=== PATIENT | female | born 2005 | race Caucasian/White ===

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

== ENCOUNTER 2024-04-10 13:44 | Outpatient (CLI) | payer OTHER, SELFPAY ==
--- NOTE | ~2024-04-10 | US_ITS ---
EXAMINATION: US pelvic complete w TV DATE: 04/10/2024 14:48 INDICATION: dysmenorrhea TECHNIQUE: Multiple transabdominal and endovaginal sonographic images of the pelvis were obtained. COMPARISON: None. FINDINGS: The uterus measures 6.7 x 3.8 x 5.2 cm. The endometrial complex measures 9 mm in thickness. The righ t ovary measures 3.3 x 2.0 x 2.7 cm. The left ovary measures 2.9 x 1.5 x 2.2 cm. There are few small anechoic follicles in both ovaries. There is normal vascular flow in the ovaries. There is small amou nt of anechoic likely physiologic free fluid in the pelvis. IMPRESSION: 1. Normal pelvic ultrasound with small amount of likely physiologic free fluid in the cul-de-sac. Reviewed, dictated and finalized at location A.
== END 2024-04-10 13:45 | disposition home or self-care (01) ==
LOC: ANHIMG 13:47
PROVIDERS: PCP Family Medicine; Visit Provider Family Medicine
DX: N94.6 Dysmenorrhea, unspecified (principal)
CPT/HCPCS: 76830; 76856

== ENCOUNTER 2025-05-19 10:14 | Emergency (ER) | payer OTHER, SELFPAY ==
--- NOTE | 2025-05-19 10:16 | ED.EAR ---
HPI - Ear Problem General Chief complaint: Ear Stated complaint: Right Ear Irritation Time Seen by Provider: 05/19/25 10:16 Source: patient Mode of arrival: ambulatory Limitations: no limitations History of Present Illness HPI Narrative: Leanna is a 20-year-old patient presenting to the clinic today with complaints right ear pain x 5-6 days. Also developing a headache from symptoms Has been taking ibuprofen and tried NyQuil for symptoms. States there was some greenish white discharge coming from the right ear. History of ear tubes as a child. No fevers, chills, body aches. Denies any URI symptoms. Related Data Home Medications ?Medication ?Instructions ?Recorded ?Confirmed ?Last Taken ?Type dextroamphetamine-amphetamine ER PO 05/19/25 Unknown History 10 mg 24hr capsule,extend release Allergies Allergy/AdvReac Type Severity Reaction Status Date / Time No Known Allergies Allergy Verified 05/19/25 10:41 Review of Systems Review of Systems: Pertinent positives per HPI. Patient denies any fever, chills, rash, headache, visual changes, dizziness, cough, shortness of breath, chest pain, palpitations, nausea, vomiting, diarrhea, constipation, abdominal pain, or any urinary issues. PMFSH Past Medical History Medical History (Updated 05/19/25 @ 10:28 by Corey Beverly APRN) Hx of migraines Bulimic Surgical History Surgical History History of ear surgery History of dental surgery Family History Family History Father Hypertension Mother Asthma Sibling Bipolar disorder Social History Social History Smoking status: Never smoker Tobacco type: cigarettes Second hand tobacco smoke exposure: No Alcohol intake: never Substance use: never Living arrangements: with family Additional living arrangements comments: parents and sibling Occupation/Education: student Gender identity (if verbalized by the patient): Female Comments At the time of my signature, I reviewed and agree with the nursing past medical, surgical, social, and family history. There is no relevant family history pertinent to the patient complaint. Exam Narrative: General: Well-developed, well nourished, in no apparent distress Head: Normocephalic, atraumatic Eyes: Pupils equally round and reactive to light bilaterally, EOM intact, sclera and conjunctive clear, no discharge, lids normal Ears: TMs intact and clear, left ear canal clear, right ear canal swelling, redness, with white discharge, tenderness to palpation over the tragus and pulling of the pinna, grossly hearing normal. Nose: Nares patent, no discharge, no inflammation, no sinus tenderness. Mouth: Oral pharynx without lesions or masses, good dentition, MMM. Neck: Supple, trachea midline, no enlargement of anterior or posterior cervical nodes, no thyroid masses or goiter palpable. Cardio: Regular rate and rhythm, s1 and s2 normal, no murmur appreciated. Resp: Clear to auscultation bilaterally, no rhonchi, rales, wheezing or rubs Course Course Emergency Course: Portions of this record may have been created with voice recognition software. Level of Care: Express Care Visit Vital Signs Vital signs: Vital Signs Temperature 37.1 C 05/19/25 10:21 Pulse Rate 62 05/19/25 10:21 Respiratory Rate 18 05/19/25 10:21 Blood Pressure 127/71 05/19/25 10:21 Pulse Oximetry 99 05/19/25 10:21 Oxygen Delivery Room Air 05/19/25 10:21 Temperature 37.1 C 05/19/25 10:21 Pulse Rate 62 05/19/25 10:21 Respiratory Rate 18 05/19/25 10:21 Blood Pressure 127/71 05/19/25 10:21 Pulse Oximetry 99 05/19/25 10:21 Oxygen Delivery Room Air 05/19/25 10:21 Vital signs reviewed Medical Decision Making MDM Narrative Medical decision making narrative: At the time of visit patient is resting comfortably on the exam table. complaints right ear pain x 5-6 days. Has been taking ibuprofen and tried NyQuil for symptoms. States there was some greenish white discharge coming from the right ear. History of ear tubes as a child. No fevers, chills, body aches. Denies any URI symptoms. Patient has some white discharge coming from the right ear with tenderness to palpation over the tragus and pulling of the pinna. Plan: I suspect patient has right otitis externa. Prescription for ofloxacin ear drops was sent to the pharmacy. Supportive measures were discussed with the patient and they voiced understanding discharge instructions and agrees to treatment plan. Return precautions reviewed Differential Diagnosis Differential Diagnosis: Otitis media, otitis externa, eustachian tube dysfunction, cerumen impaction, upper respiratory infection, serous otitis Vital Signs Vital Signs: Vital Signs Temperature 37.1 C 05/19/25 10:21 Pulse Rate 62 05/19/25 10:21 Respiratory Rate 18 05/19/25 10:21 Blood Pressure 127/71 05/19/25 10:21 Pulse Oximetry 99 05/19/25 10:21 Oxygen Delivery Room Air 05/19/25 10:21 Temperature 37.1 C 05/19/25 10:21 Pulse Rate 62 05/19/25 10:21 Respiratory Rate 18 05/19/25 10:21 Blood Pressure 127/71 05/19/25 10:21 Pulse Oximetry 99 05/19/25 10:21 Oxygen Delivery Room Air 05/19/25 10:21 Discharge Plan Discharge Clinical Impression: Otitis externa Qualifiers: Otitis externa type: unspecified type Chronicity: acute Laterality: right Qualified Code(s): H60.501 - Unspecified acute noninfective otitis externa, right ear Patient Disposition: Home Condition: Stable Instructions: Antibiotic Form, Swimmer's Ear (ED) Additional Instructions: Take any prescribed medications only as directed-ofloxacin Tylenol/motrin as needed for pain May use heating pad to alleviate pain. If you get recurrent ear infections it may be warranted to follow up with ENT. Follow up with your PCP in 3-5 days if symptoms persist. Patient Language: Indonesian Prescriptions: New ofloxacin 0.3 % drops 5 drp otic (ear) BID 7 Days Qty: 5 0RF No Action dextroamphetamine-amphetamine 10 mg capsule,extended release 24hr PO Follow-up/Referrals: Sid Smith MD [Primary Care Provider] - Time of Disposition: 10:28 Quality NIHSS Nursing Documentation ED NIHSS nursing documentation: reviewed/agree
[2025-05-19 10:21] VITALS: BP 127/71; PULSE 62; RESP 18; TEMP 37.1; O2SAT 99
== END 2025-05-19 10:31 | disposition home or self-care (01) ==
PROVIDERS: Emergency Provider Nurse Practitioner Family; PCP Emergency Medicine
DX: H60.501 Unspecified acute noninfective otitis externa, right ear (principal)
CPT/HCPCS: 99213; G0463

== ENCOUNTER 2025-06-17 08:54 | Emergency (ER) | payer OTHER, SELFPAY ==
[2025-06-17 08:57] VITALS: BP 112/79; PULSE 88; RESP 16; TEMP 36.9; O2SAT 98
--- NOTE | 2025-06-17 10:00 | ED_ITS ---
HPI - Dizziness General Chief Complaint: Dizziness Stated Complaint: Dizzy Time Seen by Provider: 06/17/25 08:56 Source: patient Mode of arrival: ambulatory Limitations: no limitations History of Present Illness HPI Narrative: Patient is a 20-year-old female, transitioning to male, that presents for 3 days of persistent dizziness. Reports the last day has been the most consistent with dizzy episode. States previously it would come and go but now has been constant. Patient took meclizine 2 days ago with no relief. Reports the room is not spinning but feels lightheaded. Movement from laying to sitting standing makes it worse along with transitioning from lying on right side to left side. Denies any nausea, vomiting, diarrhea, numbness, tingling or weakness to extremities. Denies any loss of vision but states at times there are stars. Does also report migraine 2 days ago that resolved. Has history of ear infections and ear surgery. Denies any congestion, fever, chills, ear pain, sore throat, cough. Related Data Home Medications ?Medication ?Instructions ?Recorded ?Confirmed ?Last Taken ?Type testosterone cypionate 200 mg/mL mg 06/17/25 Unknown History intramuscular oil Allergies Allergy/AdvReac Type Severity Reaction Status Date / Time No Known Allergies Allergy Verified 06/17/25 09:44 Review of Systems Review of Systems: All systems reviewed & are unremarkable except as noted in HPI and below Constitutional: Constitutional: Denies body ache(s), Denies chills, Denies fatigue, Denies fever(s), Denies headache(s), Denies malaise and Denies weakness Eyes: Eyes: Denies blurry vision, Denies irritation and Denies loss of vision ENT: Denies otalgia, Denies headache(s), Denies nasal discharge, Denies sinus pain and Denies sore throat Cardiovascular: Cardiovascular: Denies chest pain, Denies irregular heart r hythm and Denies dyspnea Respiratory: Respiratory: Denies dyspnea Gastrointestinal: Gastrointestinal: Denies abdominal pain, Denies melena, Denies hematochezia, Denies diarrhea, Denies nausea and Denies vomiting Musculoskeletal: Musculoskeletal: Denies back pain, Denies myalgias and Denies arthralgias Integumentary/Breasts: Skin/Breast: Denies pruritus and Denies rash Neurologic: Reports dizziness, Denies headache(s), Denies loss of vision and Denies weakness Psychiatric: Psychiatric: Reports no additional psychiatric complaints Endocrine: Endocrine: Denies fatigue PMFSH Past Medical History Medical History Hx of migraines Bulimic Surgical History Surgical History History of ear surgery History of dental surgery Family History Family History Father Hypertension Mother Asthma Sibling Bipolar disorder Social History Social History Smoking status: Never smoker Tobacco type: cigarettes Second hand tobacco smoke exposure: No Alcohol intake: never Substance use: never Living arrangements: with family Additional living arrangements comments: parents and sibling Occupation/Education: student Gender identity (if verbalized by the patient): Female Comments At time of signature, agree with nursing past medical, surgical, social and family history. There is no relevant family history pertinent to the presenting complaint. Exam Const: General: cooperative, healthy appearing, comfortable, no acute distress and well nourished Nutritional Appearance: well nourished Orientation/consciousness: patient oriented x3 Limitations: no limitations HENMT: Head: normal to inspection, normocephalic and atraumatic Ears: hearing grossly normal bilaterally, external ears normal, TM's normal bilaterally and Abnormal EAC present excessive cerumen bilateral Face/Nose/Sinus: Normal external nose present, normal facial exam and face symmetric Face and sinus: normal facial exam and face symmetric Mouth: Yes lip normal Eyes: General: appearance normal, both eyes and all related structures Alignment and Position: alignment normal and position normal Periorbital: periorbital findings normal Eyelids: eyelids normal Pupils: Equal, round and reactive pupils present EOM: EOMs intact bilaterally Neck: Neck: normal visual inspection, full ROM and supple Chest: Chest palpation & inspection: normal inspection of the chest Resp: Effort & Inspection: normal respiratory effort and able to speak in complete sentences Auscultation: clear to auscultation bilaterally Cardio: Rate: regular rate Rhythm: regular rhythm Heart sounds: S1 normal heart sound present and S2 normal heart sound present GI: Inspection: normal to inspection Skin: General skin exam: normal color and no rashes or lesions noted Neuro: General: patient oriented x3 and moves all extremities Cranial nerves: Yes Equal, round and reactive pupils present Speech: normal speech Gait exam (Neuro): Normal gait present Motor exam (neuro): 5/5 motor strength present throughout, Normal motor muscle tone present throughout and Motor abnormalities not present Sensory Exam: normal sensation Extrem: General: normal to inspection, full ROM and no edema Psych: Appearance: grossly normal and well kempt Mental Status: mental status grossly normal Speech and movement: Normal speech and movement present Affect: normal affect Attitude: cooperative Thought process: Normal thought process present Course Course Emergency Course: Patient being transfered to emergency department for further workup and evaluation. Patient may require labs and imaging to further assess persistent dizziness Portions of this record may have been created with voice recognition software Level of Care: Express Care Visit Vital Signs Vital signs: Vital Signs Temperature 36.9 C 06/17/25 08:57 Pulse Rate 88 06/17/25 08:57 Respiratory Rate 16 06/17/25 08:57 Blood Pressure 112/79 06/17/25 08:57 Pulse Oximetry 98 06/17/25 08:57 Oxygen Delivery Room Air 06/17/25 08:57 Temperature 36.9 C 06/17/25 08:57 Pulse Rate 88 06/17/25 08:57 Respiratory Rate 16 06/17/25 08:57 Blood Pressure 112/79 06/17/25 08:57 Pulse Oximetry 98 06/17/25 08:57 Oxygen Delivery Room Air 06/17/25 08:57 Reviewed Transfer Transfered to: [facility] Transportation: Other (Private auto) Transfer rationale: Patient being transferred to emergency department for further workup and evaluation. Patient may require labs and imaging to further assess persistent dizziness Accepting physician: Aba JACKSON MDM - Dizziness MDM Narrative Medical decision making narrative: Patient being transfered to emergency department for further workup and evaluation. Patient may require labs and imaging to further assess persistent dizziness Differential Diagnosis Differential diagnosis: Likely adverse reaction to drug, benign paroxysmal positional vertigo, cerebrovascular accident and transient cerebral ischemia Medical Records Attestation: I reviewed the patient's medical records. Discharge Plan Discharge Clinical Impression: Dizziness Patient Disposition: Acute Care Hospital Condition: Stable Patient Language: Taiwanese Prescriptions: No Action testosterone cypionate 200 mg/mL oil Follow-up/Referrals: Sid Smith MD [Primary Care Provider, [facility]] Time of Disposition: 10:00
== END 2025-06-17 10:00 | disposition short-term general hospital (02) ==
PROVIDERS: Emergency Provider Nurse Practitioner Family; PCP Emergency Medicine
DX: R42 Dizziness and giddiness (principal)
CPT/HCPCS: 99212; G0463

== ENCOUNTER 2025-06-17 10:17 | Emergency (ER) | payer OTHER, SELFPAY ==
--- OUTSIDE RECORDS SUMMARY | 2024-10-05 11:01 | XMS_ITS | Continuity of Care Document ---
Author Organization [facility] Address [address] [place], [place] Phone Care Team Providers Care Soccer Player Name Role Phone Sid Smith MD Unavailable Unavailable Allergies, Adverse Reactions, Alerts Substance Reaction Status Criticality cat dander Active No Information Medications Medication Instructions Dosage Effective Dates (start - stop) Status Comments Adderall XR 5 mg capsule,extended release take 1 capsule by oral route every day in the morning upon awakening 5 MG - Active Procedures Procedure Date OFFICE/OUTPATIENT VISIT, EST OFFICE/OUTPATIENT VISIT, EST OFFICE/OUTPATIENT VISIT, EST OFFICE/OUTPATIENT VISIT, EST PREV VISIT, NEW, AGE 18-39 OFFICE/OUTPATIENT VISIT, NEW Advance Directives Directive Yes / No Effective Date File Name No Information Encounters Encounter Description Practice Location Reason(s) For Visit Diagnoses Date Provider Providers Copied on Encounter OFFICE/OUTPA TIENT VISIT, [facility], [address], [id number], tel:[phone] [facility] testosterone (chief complaint)ADD (chief complaint) Attention deficitHormone replacement therapy Luis Lau. [address] [place], [place], [address] , [place]. tel:[phone] OFFICE/OUTPA TIENT VISIT, [facility], [address] [place], [place], [address], tel:[phone] [facility] acne1 (chief complaint)ADD (chief complaint) AcneAttention deficit 4 Luis Lau. [address], [place], [place], [address] , [place]. tel:[phone] OFFICE/OUTPA TIENT VISIT, [facility], [address], [place], [place], [address], [place] tel:[phone] [facility] ADD (chief complaint) Attention deficit 4 Luis Lau. [address], [place], [place], [address] , [place]. tel:[phone] OFFICE/OUTPA TIENT VISIT, [facility], [address], [place], [place], [address], [place] tel:[phone] [facility] ADD (chief complaint) Attention deficit 4 Luis Lau. [address], [place], [place], [address] , [place]. [phone] PREV VISIT, NEW, AGE 18-39 [facility], [address], [place], [place], [address], [place] tel:[phone] [facility] physical (chief complaint) Encounter for general adult medical exam w abnormal findingsAmenorrh eaHypopituitaris m 4 Luis Lau. [address], [place], [place], [address] , [place]. tel:[phone] Family History Family Member Type Diagnosis Age At Onset Brother Problem Alive and well Mother Problem Alive and well Father Problem Alive and well Payers Payer name Insurance type Covered constitution party ID Authoriza tion(s) No Information Social History Type Description Quantity Date Captured Comments Alcohol Use Details No Caffeine Use Details Unknown Tobacco Use Status Current non-smoker Smoking Status Never smoker Sex Female Vital Signs Date / Time: Height Weight BMI Pulse Rate Blood Pressure Temperature Respiratory Rate Body Surface Area Head Circumference BMI percentile Pulse Ox Inhaled Ox 4:08 PM 64.00 in 170.00 lbs 29.1 8 kg/m eter (2) 95 /min 120/80 mm[Hg] 98.1 F 16 /min Chief Complaint And Reason For Visit From encounter dated '10/05/2024 16:01'. testosterone (chief complaint). Description: Pt is born female and she is changing to male Pt needsdepo testosterone IM injection. her endo prescribed it 100 mg SC weekly. Pt feels anxious about doing the shot so she presented in office for the injections. ADD (chief complaint). Description: Pt has ADD pt sees psychiatrist for adderall and she is doing ok Plan Of Treatment Date Type Action Status Referral Ordered: Dermatology (related to Acne) ordered Referral Ordered: Referrals: Dermatology ordered Referral Ordered: Psychiatry (related to Attention deficit) ordered Referral Ordered: Referrals: Psychiatry. Evaluate and treat ordered History Of Present Illness Encounter Date Complaint History Of Prese nt Illness testosterone Pt is born femal e and she is changing to male Pt needs depo testosterone IM injection. her endo prescribed it 100 mg SC weekly. Pt feels anxious about doing the shot so she presented in office for the injections. ADD Pt has ADD pt se es psychiatrist for adderall and she is doing ok acne1 Pt has some cyst ic acne due to testosterone replacement chronically .Pt wants to see a in home nanny. Pt notices intermittent flare up with pain. Pt denies any drainage ADD Pt has ADD Pt do ing ok with adderall. Pt saw psychiatrist and she is on adderall 5 mg Xr now ADD Patient has ADD. Patient has inattentive type. Patient feels scatterbrained. Patient feel poor focus and difficulty completing tasks. Patient states that Adderall is helping with symptoms. Patient feels more focused. Pt feels more energy. Patient denies any headache, dry mouth, headache, chest pain. Patient denies any appetite loss. Pt wants to try XR form of adderall. ADD Pt has ADD pt smyth s been taking adderall 5 mg BID for 6 months which works very well but he notices crash feeling towards the end of the day. his psychiatrist closed the office and she wants referral to new psychiatrist. physical Pt needs annual physical pt is a born female and she is transitioning to female and she has been on 0.25 mg testosterone IM weekly. Pt started 3 months ago. Pt sees endo but she could not get in for 1 year. Pt still getting testosterone supply from endo but she is not able to follow up for at least one year Pt denies any side effects .Pt has not noticed any hair growth or voice change, etc Pt wants lab check Instructions Date Instruction Additional Infor mation No Information Assessments Type Assessment Date assessment Attention deficit assessment Hormone replacement therapy Mental Status Date Cognitive Assessment Orientation - [place] ed to time, place, person, situation.
[2025-06-17] VITALS (11 sets, daily range): BP systolic 85–138; BP diastolic 57–91; PULSE 55–96; RESP 13–20; TEMP 36.6; O2SAT 97–100
--- NOTE | 2025-06-17 10:46 | ED.DIZZY ---
HPI - Dizziness General Chief Complaint: Dizziness Stated Complaint: dizziness Time Seen by Provider: 06/17/25 10:29 History of Present Illness HPI Narrative: 40-year-old female transitioning to male presents to the ER complaining of dizziness for 3 days. States the dizziness is worse with positional movements. Denies injury or trauma. Patient was seen at urgent care earlier today and instructed to come to the ER for further evaluation. Patient states that she has been taking meclizine without improvement recent days. Related Data Home Medications ?Medication ?Instructions ?Recorded ?Confirmed ?Last Taken ?Type testosterone cypionate 200 mg/mL mg 06/17/25 Unknown History intramuscular oil Allergies Allergy/AdvReac Type Severity Reaction Status Date / Time No Known Allergies Allergy Verified 06/17/25 11:50 Review of Systems Review of Systems: All systems reviewed & are unremarkable except as noted in HPI and below PMFSH Past Medical History Medical History Hx of migraines Bulimic Surgical History Surgical History History of ear surgery History of dental surgery Family History Family History Father Hypertension Mother Asthma Sibling Bipolar disorder Social History Social History Smoking status: Never smoker Tobacco type: cigarettes Second hand tobacco smoke exposure: No Alcohol intake: never Substance use: never Living arrangements: with family Additional living arrangements comments: parents and sibling Occupation/Education: student Gender identity (if verbalized by the patient): Female Exam Narrative: In summary: 20-year-old female presents to ER complaining of positional dizziness. Patient was found to have a bilateral cerumen impaction. After wax removal, patient reported mild improvement in the dizziness. Patient was then given 1 L of fluid and a trial dose of 5 mg of Valium. Patient reports significant improvement in her dizziness. Will plan to discharge patient home in stable condition. Const: General: healthy appearing, no acute distress and alert Nutritional Appearance: well nourished Orientation/consciousness: patient oriented x3 Limitations: no limitations HENMT: Head: normal to inspection Other: bilateral cerumen impaction Eyes: Conjunctivae: conjunctivae normal Pupils: Equal, round and reactive pupils present EOM: EOMs intact bilaterally Neck: Neck: normal visual inspection Chest: Chest palpation & inspection: normal inspection of the chest Resp: Effort & Inspection: normal respiratory effort Auscultation: clear to auscultation bilaterally Cardio: Rate: regular rate Rhythm: regular rhythm Skin: General skin exam: normal color Rashes: no rashes Wounds: no wounds Neuro: General: patient oriented x3, moves all extremities, no meningeal signs, no focal motor deficits and CN's II-XI intact bilaterally Cranial nerves: Yes Nystagmus not present Speech: normal speech Gait exam (Neuro): Normal gait present Extrem: General: normal to inspection Psych: Mental Status: mental status grossly normal Affect: normal affect Attitude: cooperative Course Vital Signs Vital signs: Vital Signs Temperature 36.6 C 06/17/25 10:25 Pulse Rate 80 06/17/25 10:25 Respiratory Rate 20 06/17/25 10:25 Blood Pressure 136/73 06/17/25 10:25 Pulse Oximetry 99 06/17/25 10:25 Oxygen Delivery Room Air 06/17/25 10:25 Temperature 36.6 C 06/17/25 10:25 Pulse Rate 66 06/17/25 12:31 Respiratory Rate 14 06/17/25 12:31 Blood Pressure 90/68 L 06/17/25 12:31 Pulse Oximetry 100 06/17/25 12:31 Oxygen Delivery Room Air 06/17/25 10:25 MDM - Dizziness Lab Data 06/17/25 12:06 06/17/25 12:06 Labs: Lab Results 06/17/25 Range/Units 12:06 WBC 9.2 (4.5-10.0) K/mm3 RBC 5.58 H (4.2-5.4) M/mm3 Hgb 16.1 H (12.0-15.0) g/dL Hct 48.6 H (37.0-47.0) % MCV 87.1 (80-100) fl MCH 28.9 (26-34) pg MCHC 33.1 (32-36) g/dl RDW 13.6 (11.5-14.5) % Plt Count 259 (150-375) k/mm3 MPV 11.4 H (7.4-10.4) fl Immature Gran % (Auto) 0.3 (0-0.5) % Neut % (Auto) 70.1 (45.5-73.1) % Lymph % (Auto) 22.8 (18.3-44.2) % [place] % (Auto) 5.4 (2.6-8.5) % Eos % (Auto) 0.9 (0-4.4) % Baso % (Auto) 0.5 (0.2-1.2) % Lymph # (Auto) 2.09 (0.9-3.2) K/mm3 [place] # (Auto) 0.5 (0.1-0.6) K/mm3 Eos # (Auto) 0.1 (0-0.3) K/mm3 Baso # (Auto) 0.1 (0.0-0.1) K/mm3 Abs Immat Gran (auto) 0.03 (0.00-0.031) K/mm3 Absolute Neuts (auto) 6.4 (1.3-6.7) K/mm3 Absolute Nucleated RBC 0.000 (0.0-0.012) K/mm3 Nucleated RBC % 0.0 (0.0-0.2) % Sodium Pending Potassium Pending Chloride Pending Carbon Dioxide Pending Anion Gap Pending BUN Pending Creatinine Pending Estim Creat Clear Calc Pending Estimated GFR Pending Glucose Pending Calcium Pending Discharge Plan Discharge Clinical Impression: Benign paroxysmal positional vertigo, Bilateral impacted cerumen Patient Disposition: Home Condition: Stable Instructions: Antibiotic Form, Benign Paroxysmal Positional Vertigo (ED) Patient Language: Swedish Prescriptions: New meclizine 50 mg tablet 50 mg PO BID Qty: 20 0RF No Action testosterone cypionate 200 mg/mL oil Follow-up/Referrals: Sid Smith MD [Primary Care Provider, [facility]] Time of Disposition: 12:36
--- OUTSIDE RECORDS SUMMARY | 2025-06-17 10:48 | XMS_ITS | Clinical Summary ---
Author Organization [facility] Address [address] [place] [address] Care Team Providers Care Child Daycare Worker Name Role Phone Emma Jovel MD Primary Care Provider [phone] Source Comments [facility],non-owned Affiliates and Associated Physician Practices is amultiple site organization consisting of ambulatory clinics and hospital sitesin [place], [place] and [place]. This disclosure is being madepursuant to the Care Everywhere program and may not contain all information available regarding this patient. Last updated 18.[facility] [employer] Allergies Active Allergy Reactions Criticality Noted Date Comments Topiramate CORE SHAPER TOP Dysfunction 05/01/2021 Medications * Be aware that medications may not be up to date on this document. Alwaysverify current medications with the patient. levocetirizine (XYZAL ALLERGY 24HR) 5 MG tablet Take 5 mg by mouth once daily Active fluticasone propionate (FLONASE) 50 MCG/ACT nasal spray SHAKE LIQUID AND USE 1 SPRAY IN EACH NOSTRIL EVERY DAY 11/02/2020 Active nortriptyline (PAMELOR) 10 MG capsuleIndicati ons:migraine Take 3 caps at bedtime. Reasons: migraine 90 capsule 3 06/15/2021 Active rizatriptan (MAXALT) 5 MG tablet Take 1 (one) tablet by mouth once as needed for Migraine (MR in 2 hrs if needed) 12 tablet 3 06/15/2021 Active FEROSUL 325 (65 Fe) MG tablet TAKE 1 TABLET BY MOUTH TWICE DAILY, WITH MORNING AND EVENING MEAL 60 tablet 1 09/06/2021 Active Active Problems Problem Noted Date Diagnosed Date Dizziness 01/23/2021 Social History Tobacco Use Types Packs/Day Years Used Date Smoking Tobacco: Never Smokeless Tobacco: Never Alcohol Use Standard Drinks/Week Comments Never 0 (1 standard drink = 0.6 oz pur e alcohol) Comments No Sex and Gender Information Value Date Recorded Sex Assigned at Not on file Legal Sex Female 1:45 PM CDT Gender Identity Not on file Sexual Orientation Not on file Last Filed Vital Signs Vital Sign Reading Time Taken Comments Blood Pressure 100/62 06/15/2021 3:09 PM CDT Pulse 80 01/25/2021 3:37 PM CDT Temperature - - Respiratory Rate 16 01/25/2021 3:36 PM CDT Oxygen Saturation 97% 01/25/2021 3:36 PM CDT Inhaled Oxygen Concentration - - Weight 69 kg (152 lb 1.9 oz) 06/15/2021 3:09 PM CDT Height 161.3 cm (5' 3.5) 06/15/2021 3:09 PM CDT Body Mass Index 26.52 06/15/2021 3:09 PM CDT Plan of Treatment Health Maintenance Due Date Last Done Comments HIV SCREENING 01/20/2019 HPV VACCINE (1 - 3-dose series) 01/20/2019 CHLAMYDIA/GONORRHEA SCREENING 2020 MENINGOCOCCAL (Group B) VACCINE SHARED DECISION-MAKING (1 of 2 - Standard) 2020 HEPATITIS C SCREENING 01/16/2022 DTAP/TDAP/TD VACCINES (1 - Tdap) 01/20/2023 HEPATITIS B VACCINE (1 of 3 - 19+ 3-dose series) 01/20/2023 COVID-19 VACCINE (1 - season) 2024 DEPRESSION SCREENING 10/14/2024 INFLUENZA VACCINE (#1) 2025 3, 10/17/2009, 08/27/2006, Additional history exists ZOSTER VACCINE (1 of 2) 01/20/2054 HIB VACCINE Aged Out No longer eligi ble based on patient's age to complete this topic MENINGOCOCCAL GROUPS A/C/Y/W VACCINE Aged Out No longer eligible based on patient's age to complete this topic PNEUMOCOCCAL VACCINE Aged Out No long er eligible based on patient's age to complete this topic Insurance Care Teams Child Daycare Worker Relationship Specialty Start Date End Date Emma Jovel MD [address] [place] [address] [place] [address] PCP - General Family Medicine 12/26/20
--- OUTSIDE RECORDS SUMMARY | 2025-06-17 10:48 | XMS_ITS | Patient Health Record ---
Author Organization [facility] [employer] Address [address] [facility] [address] [place] [address] Care Team Providers Care Digital Field Service Technician Name Role Phone Rayne Smith Unavailable [phone] Reason For Referral No Information Medications Medication SIG (Take, Route, Frequency, Duration) Notes Start Date End Date Status Amphetamine-Dextroamphetamin e 5 MG Tablet Oral Active methylPREDNISolone 4 MG Tablet Therapy Pack Oral Active Amoxicillin 875 MG Tablet Oral Active Testosterone Cypionate 200 MG/ML Solution Intramuscular Active Plan Of Treatment No Information Insurance Providers Payer Name Payer Address Payer Phone Subscriber Number Group Number Insured Name Patient Relationship to Insured Coverage Start Date Coverage End Date [facility] [address] [place] [address] [id number] VALORIE GIMENEZ Self - patient is the insured
--- OUTSIDE RECORDS SUMMARY | 2025-06-17 11:20 | XMS_ITS | Clinical Summary ---
Author Organization [facility] Address [address] [place] [address] Care Team Providers Care Upfitter Name Role Phone Emma Jovel MD Primary Care Provider Source Comments [facility],non-owned Affiliates and Associated Physician Practices is amultiple site organization consisting of ambulatory clinics and hospital sitesin [place], [place], [place] and [place]. This disclosure is being madepursuant to the Care Everywhere program and may not contain all information available regarding this patient. Last updated 18.[facility] [employer] Allergies Active Allergy Reactions Criticality Noted Date Comments Topiramate BUSINESS PROJECT MANAGER Dysfunction 05/01/2021 Medications * Be aware that [...] to complete this topic Insurance Care Teams Upfitter Relationship Specialty Start Date End Date Emma Jovel MD [address] [place] [address] [place] [address] PCP - General Family Medicine 12/26/20
[2025-06-17 12:13] LABS: Hematocrit 48.6 % (37.0-47.0); Hemoglobin 16.1 g/dL (12.0-15.0); Immature Granulocyte Percent A 0.3 % (0-0.5); Lymphocytes Absolute Auto 2.09 K/mm3 (0.9-3.2); Mean Corpuscular HGB Conc 33.1 g/dl (32-36); Mean Corpuscular Hemoglobin 28.9 pg (26-34); Mean Corpuscular Volume 87.1 fl (80-100); Nucleated Red Blood Cells Absolute Auto 0.000 K/mm3 (0.0-0.012); Nucleated Red Blood Cells Perc 0.0 % (0.0-0.2); Platelet Count Result 259 k/mm3 (150-375); Red Blood Count 5.58 M/mm3 (4.2-5.4); White Blood Count 9.2 K/mm3 (4.5-10.0)
[2025-06-17] MEDS: SODIUM CHLORIDE 0.9% IV 1,000 ML 999 ML IV CONT (12:15)
[2025-06-17] MEDS: diazePAM INJ (*CRX) 10 MG/2 ML SYRINGE 5 MG IV PUSH (12:15)
[2025-06-17 12:41] LABS: Anion Gap 11 mmol/L (4-12); Blood Urea Nitrogen 15 mg/dL (7-17); Calcium 9.6 mg/dL (8.4-10.2); Carbon Dioxide 21 mmol/L (22-30); Chloride 104 mmol/L (98-107); Estimated CRCL calculation 93 ml/min; Estimated Glomerular Filt Rate > 60; Glucose 96 mg/dL (65-110); Potassium 4.3 mmol/L (3.4-5.0); Sodium 136 mmol/L (137-145)
== END 2025-06-17 13:00 | disposition home or self-care (01) ==
PROVIDERS: Emergency Provider Nurse Practitioner Family; PCP Emergency Medicine
DX: H81.10 Benign paroxysmal vertigo, unspecified ear (principal); H61.23 Impacted cerumen, bilateral; F64.0 Transsexualism; Z79.890 Hormone replacement therapy
CPT/HCPCS: 36415; 80048; 85025; 96361; 96374; 99284; J3360; J7030

== ENCOUNTER 2025-06-18 08:02 | Emergency (ER) | payer OTHER, SELFPAY ==
--- OUTSIDE RECORDS SUMMARY | 2024-10-05 11:01 | XMS_ITS | Continuity of Care Document ---
Author Organization [facility] Address [address] [place], [place] Phone Care Team Providers Care Intelligence Intern Name Role Phone Sid Smith MD Unavailable [...] Providers Copied on Encounter OFFICE/OUTPA TIENT VISIT, [facility] [place], [address], [place], [id number], tel:[phone] [facility] testosterone (chief complaint)ADD (chief complaint) Attention deficitHormone replacement therapy Luis Lau. [address] [place], [place], [address] , [place]. tel:[phone] OFFICE/OUTPA TIENT VISIT, [facility] [place], [address] [place], [place], [id number], tel:[phone] [facility] acne1 (chief complaint)ADD (chief complaint) AcneAttention deficit 4 Luis Lau. [address], [place], [place], [address] , [place]. tel:[phone] OFFICE/OUTPA TIENT VISIT, [facility] [place], [address], [place], [place], [id number], [place] tel:[phone] [facility] ADD (chief complaint) Attention deficit 4 Luis Lau. [address], [place], [place], [address] , [place]. tel:[phone] OFFICE/OUTPA TIENT VISIT, [facility] [place], [address], [place], [place], [address], [place] tel:[phone] [facility] ADD (chief complaint) Attention deficit 4 Luis Lau. [address], [place], [place], [address] , [place]. [phone] PREV VISIT, NEW, AGE 18-39 [facility], [address], [place], [place], [address], [place] tel:[phone] [facility] physical (chief complaint) Encounter for general adult medical exam w abnormal findingsAmenorrh eaHypopituitaris m 4 Luis Lau. [address], [place], [place], [address] , [place]. tel:[phone] Family History Family Member Type Diagnosis Age At Onset Brother Problem Alive and well Mother Problem Alive and well Father Problem Alive and well Payers Payer name Insurance type Covered republican ID Authoriza tion(s) No Information Social History [...] Ordered: Referrals: Psychiatry. Evaluate and treat ordered Appointment Leanna Armendariz BOOKED History Of Present Illness Encounter Date Complaint [...] replacement chronically .Pt wants to see a hiv/aids care nurse. Pt notices intermittent flare up with pain. [...] Mental Status Date Cognitive Assessment Orientation - [place] ed to time, place, person, situation.
[2025-06-18] VITALS (19 sets, daily range): BP systolic 100–128; BP diastolic 68–80; PULSE 67–105; RESP 10–22; TEMP 36.4; O2SAT 98–100
--- NOTE | ~2025-06-18 | CT_ITS ---
EXAMINATION: CTA BRAIN/CAROTID DATE: 06/18/2025 09:23 INDICATION: Dizziness TECHNIQUE: Computed tomographic angiography (CTA) of the head and neck was performed with 100 mL Omnipaque-350 intravenous contrast. Multiplanar reconstructions and maximum intensity projection 3D-reconstructions of the carotid arteries and of the intracranial arteries were created by the technologist on a separate workstation. Precontrast CT of the head was also obtained. Automated exposure control and iterative reconstruction technique were employed.The dose-length product was 1614.44 mGy-cm. COMPARISON: None. FINDINGS: Head: No acute intracranial hemorrhage, acute infarction or abnormal extra axial fluid collection. Ventricles are normal and symmetric. No mass/mass effect. No abnormally enhancing brain lesions on the postcontrast imaging. The orbits, paranasal sinuses and mastoid air cells are normal. Intracranial arteries Vertebral arteries are codominant. There is no hemodynamically significant stenosis in the vertebral, basilar and internal carotid arteries. Both A1 and P1 segments are patent. There are also patent bilateral posterior communicating arteries. There are no aneurysms identified. Cerebral arterial arborization appears symmetric. Carotid arteries: The aortic arch and the great vessels arising from the arch are normal in caliber with no dissection or hemodynamically significant stenosis. Bilateral vertebral arteries are codominant. There is a normal anatomic variant direct origin of the left vertebral artery from the aortic arch. No evident stenosis along the bilateral vertebral arteries. There is no evident atherosclerotic plaque with 0% stenosis of the right and left carotid bulbs relative to normal distal artery lumen diameter (NASCET criteria). Cervical soft tissues are unremarkable. IMPRESSION: 1. No evident atherosclerotic plaque with 0% stenosis of the right and left carotid bulbs relative to normal distal artery lumen diameter (NASCET criteria). 2. Normal head CT and cerebral CT angiogram. Reviewed, dictated and finalized at location A. IMPRESSION: 1. No evident atherosclerotic plaque with 0% stenosis of the right and left car otid bulbs relative to normal distal artery lumen diameter (NASCET criteria). 2. Normal head CT and cerebral CT angiogram.
--- OUTSIDE RECORDS SUMMARY | 2025-06-18 08:05 | XMS_ITS | Patient Health Record ---
Author Organization [facility] Address [address] [facility] [address] [place] [address] Care Team Providers Care Manufacturing Chief Engineer Name Role Phone Rayne Smith Unavailable [phone] Reason For Referral No Information Medications Medication [...] Insured Coverage Start Date Coverage End Date [facility] [address] [place] [address] [id number] VALORIE GIMENEZ Self - patient is the insured
--- OUTSIDE RECORDS SUMMARY | 2025-06-18 08:05 | XMS_ITS | Clinical Summary ---
Author Organization [facility] Address [address] [facility] [place] [address] Care Team Providers Care Bundle Breaker Name Role Phone Emma Jovel MD Primary Care Provider [phone] Source Comments [facility],non-owned Affiliates and Associated Physician Practices is amultiple site organization consisting of ambulatory clinics and hospital sitesin [place], [place], [place] and [place]. This disclosure is being madepursuant to the Care Everywhere program and may not contain all information available regarding this patient. Last updated 18.[facility] [employer] Allergies Active Allergy Reactions Criticality Noted Date Comments Topiramate RADIO MECHANIC Dysfunction 05/01/2021 Medications * Be aware that [...] to complete this topic Insurance Care Teams Bundle Breaker Relationship Specialty Start Date End Date Emma Jovel MD [address] [place] [address] [place] [address] PCP - General Family Medicine 12/26/20
--- OUTSIDE RECORDS SUMMARY | 2025-06-18 08:05 | XMS_ITS | Clinical Summary ---
Author Organization [facility] Address [address] [place] [address] Care Team Providers Care Cray Fishing Hand Name Role Phone Hyun Krueger Primary Care Provider Social History Tobacco Use Types Packs/Day Years Used Date Smoking Tobacco: Never Assessed Comments Unknown Sex and Gender Information Value Date Recorded Sex Assigned at Not on file Legal Sex Female 11:34 AM CDT Gender Identity Not on file Sexual Orientation Not on file Plan of Treatment Health Maintenance Due Date Last Done Comments Cervical Cancer Screening Pa p Smear (Age 21 to 29) Every 3 Years 2004 Cervical Cancer Screening 2004 Annual Physical 01/20/2007 HPV Vaccines (1 - 3-dose series) 01/20/2019 Meningococcal B Vaccine (1 o f 2 - Standard) 2020 Hepatitis C 01/20/2022 DTaP, Tdap and Td Vaccines ( 1 - Tdap) 01/20/2023 Hepatitis B Vaccines (1 of 3 - 19+ 3-dose series) 01/20/2023 COVID-19 Vaccine (1 - 2023-2 5 season) 2024 Meningococcal Vaccine Aged Out No sonal pepe eligible based on patient's age to complete this topic Pneumococcal Vaccine: Pediat rics (0 to 5 Years) and At-Risk Patients (6 to 49 Years) Aged Out No longer eligible b ased on patient's age to complete this topic RSV Immunizations Under 20 Months Aged Out No longer eligible based on patient's age to complete this topic Care Teams Cray Fishing Hand Relationship Specialty Start Date End Date Hyun Krueger FNP PCP - General NURSE PRACTITIONER 12/26/20
--- NOTE | 2025-06-18 08:11 | ECG_ITS ---
Test Date: 2025-06-18 08:13:38 Measurements Intervals Shannon Rate: 80 P: 44 NH: 142 QRS: 2 QRSD: 99 T: 22 QT: 337 QTc: 390 Interpretive Statements SINUS RHYTHM WITH SINUS ARRHYTHMIA No previous ECG available for comparison Electronically Signed On 06-18-2025 12:38:16 CDT by Eliot Jean Baptiste M.D.
--- NOTE | 2025-06-18 08:37 | ED.GENADULT ---
HPI - General Adult General Chief complaint: Dizziness Stated complaint: Dizzy x 4 days. Seen yesterday Time Seen by Provider: 06/18/25 08:13 History of Present Illness HPI narrative: Patient is a 20-year-old who presents emergency department with chief complaint of dizziness. Patient reports that been having symptoms for the last 4 days reports there were seen in the emergency department and urgent care patient was started on Antivert and also had there ears disimpacted from cerumen. The patient has attempted Comfort maneuvers at home without success and reports the symptoms are not improving. Related Data Home Medications ?Medication ?Instructions ?Recorded ?Confirmed ?Last Taken ?Type testosterone cypionate 200 mg/mL mg 06/17/25 Unknown History intramuscular oil Allergies Allergy/AdvReac Type Severity Reaction Status Date / Time No Known Allergies Allergy Verified 06/18/25 08:22 Review of Systems Review of Systems: A 10 system review of systems was completed on the patient and is negative except for what is stated in the HPI. Nursing and ancillary documentation was reviewed. [facility] Past Medical History Medical History Hx of migraines Bulimic Surgical History Surgical History History of ear surgery History of dental surgery Family History Family History Father Hypertension Mother Asthma Sibling Bipolar disorder Social History Social History Smoking status: Never smoker Tobacco type: cigarettes Second hand tobacco smoke exposure: No Alcohol intake: never Substance use: never Living arrangements: with family Additional living arrangements comments: parents and sibling Occupation/Education: student Gender identity (if verbalized by the patient): Female Exam Narrative: GENERAL: Well-appearing, well-nourished, and in no acute distress. HEAD: Normocephalic, atraumatic. EYES: PERRLA and EOMI. ENT: Nares clear, no rhinorrhea or epistaxis. Mucous membranes moist. Positive symptoms with movement of head to the left NECK: Supple. CHEST: Clear to auscultation. No respiratory distress. HEART: Regular rate and rhythm. No murmur heard. Normal peripheral pulses. ABDOMEN: Soft, nontender, nondistended, normal active bowel sounds. EXTREMITIES: Normal range of motion. No edema. SKIN: Warm, dry, no rash. NEURO: No focal deficits. Alert and oriented x3. PSYCH: Normal mood and affect. Course Vital Signs Vital signs: Vital Signs Temperature 36.4 C 06/18/25 08:08 Pulse Rate 105 H 06/18/25 08:08 Respiratory Rate 16 06/18/25 08:08 Blood Pressure 128/80 06/18/25 08:08 Pulse Oximetry 99 06/18/25 08:08 Oxygen Delivery Room Air 06/18/25 08:08 Temperature 36.4 C 06/18/25 08:08 Pulse Rate 84 06/18/25 09:51 Respiratory Rate 19 06/18/25 09:50 Blood Pressure 104/70 06/18/25 09:51 Pulse Oximetry 98 06/18/25 09:50 Oxygen Delivery Room Air 06/18/25 08:08 Medical Decision Making MDM Narrative Medical decision making narrative: Differential diagnosis includes CVA, large vessel occlusion, aneurysm, vertigo The patient's symptoms were significantly improved using an Comfort maneuver CT angiography of the head neck showed no acute abnormality laboratory studies showed a hemoglobin of 15.9 otherwise no significant abnormalities Patient will be referred to orthopedics will also be given instructions for self performed Comfort maneuver Vital Signs Vital Signs: Vital Signs Temperature 36.4 C 06/18/25 08:08 Pulse Rate 105 H 06/18/25 08:08 Respiratory Rate 16 06/18/25 08:08 Blood Pressure 128/80 06/18/25 08:08 Pulse Oximetry 99 06/18/25 08:08 Oxygen Delivery Room Air 06/18/25 08:08 Temperature 36.4 C 06/18/25 08:08 Pulse Rate 84 06/18/25 09:51 Respiratory Rate 19 06/18/25 09:50 Blood Pressure 104/70 06/18/25 09:51 Pulse Oximetry 98 06/18/25 09:50 Oxygen Delivery Room Air 06/18/25 08:08 Lab Data 06/18/25 08:31 06/18/25 08:31 Labs: Lab Results 06/18/25 06/18/25 Range/Units 08:31 08:35 WBC 6.5 (4.5-10.0) K/mm3 RBC 5.52 H (4.2-5.4) M/mm3 Hgb 15.9 H (12.0-15.0) g/dL Hct 48.6 H (37.0-47.0) % MCV 88.0 (80-100) fl MCH 28.8 (26-34) pg MCHC 32.7 (32-36) g/dl RDW 13.5 (11.5-14.5) % Plt Count 241 (150-375) k/mm3 MPV 11.2 H (7.4-10.4) fl Immature Gran % (Auto) 0.3 (0-0.5) % Neut % (Auto) 65.2 (45.5-73.1) % Lymph % (Auto) 26.4 (18.3-44.2) % [place] % (Auto) 5.7 (2.6-8.5) % Eos % (Auto) 1.8 (0-4.4) % Baso % (Auto) 0.6 (0.2-1.2) % Lymph # (Auto) 1.72 (0.9-3.2) K/mm3 [place] # (Auto) 0.4 (0.1-0.6) K/mm3 Eos # (Auto) 0.1 (0-0.3) K/mm3 Baso # (Auto) 0.0 (0.0-0.1) K/mm3 Abs Immat Gran (auto) 0.02 (0.00-0.031) K/mm3 Absolute Neuts (auto) 4.3 (1.3-6.7) K/mm3 Absolute Nucleated RBC 0.000 (0.0-0.012) K/mm3 Nucleated RBC % 0.0 (0.0-0.2) % Sodium 139 (137-145) mmol/L Potassium 4.4 (3.4-5.0) mmol/L Chloride 105 (98-107) mmol/L Carbon Dioxide 26 (22-30) mmol/L Anion Gap 8 (4-12) mmol/L BUN 12 (7-17) mg/dL Creatinine 0.91 (0.7-1.0) mg/dL Estim Creat Clear Calc 84 ml/min Estimated GFR > 60 (59 - ) Glucose 115 H (65-110) mg/dL Calcium 9.5 (8.4-10.2) mg/dL Magnesium 2.0 (1.6-2.3) mg/dL Total Bilirubin 0.6 (0.2-1.3) mg/dL AST 24 (14-36) U/L ALT 16 (6-35) U/L Alkaline Phosphatase 66 (38-126) U/L Total Protein 7.8 (6.3-8.2) g/dL Albumin 4.6 (3.5-5.1) g/dL Urine Color Yellow (Yellow) Urine Appearance Clear (Clear) Urine pH 6.5 (5.0-9.0) Ur Specific [place] 1.005 (1.001-1.035) Urine Protein Negative (Negative) mg/dL Urine Glucose (UA) Negative (Negative) mg/dL Urine Ketones Negative (Negative) mg/dL Ur Blood (Man) Negative (Negative) Urine Nitrate Negative (Negative) Urine Bilirubin Negative (Negative) Urine Urobilinogen 0.2 (<2.0) mg/dL Leukocyte Esterase Rfl Trace H (Negative) KRISTEN/UL Urine RBC 0-2 (0-2) /hpf Urine WBC 0-5 (0-3) /hpf Ur Squamous Epith Cells None seen (Few) /hpf Urine Bacteria None seen /hpf Urine Casts 0-2 Discharge Plan Discharge Clinical Impression: Benign paroxysmal positional vertigo Patient Disposition: Home Condition: Stable Instructions: Antibiotic Form, Benign Paroxysmal Positional Vertigo (ED) Patient Language: Ukrainian Prescriptions: No Action testosterone cypionate 200 mg/mL oil meclizine 50 mg tablet 50 mg PO BID Qty: 20 0RF Follow-up/Referrals: Sid Smith MD [Primary Care Provider, [facility]]
[2025-06-18 08:43] LABS: Hematocrit 48.6 % (37.0-47.0); Hemoglobin 15.9 g/dL (12.0-15.0); Immature Granulocyte Percent A 0.3 % (0-0.5); Lymphocytes Absolute Auto 1.72 K/mm3 (0.9-3.2); Mean Corpuscular HGB Conc 32.7 g/dl (32-36); Mean Corpuscular Hemoglobin 28.8 pg (26-34); Mean Corpuscular Volume 88.0 fl (80-100); Nucleated Red Blood Cells Absolute Auto 0.000 K/mm3 (0.0-0.012); Nucleated Red Blood Cells Perc 0.0 % (0.0-0.2); Platelet Count Result 241 k/mm3 (150-375); Red Blood Count 5.52 M/mm3 (4.2-5.4); White Blood Count 6.5 K/mm3 (4.5-10.0)
[2025-06-18] MEDS: PROCHLORPERAZINE EDISYLATE 10 MG/2 ML VIAL IV PUSH (08:56)
[2025-06-18] MEDS: diazePAM INJ (*CRX) 10 MG/2 ML SYRINGE 5 MG IV PUSH (08:56)
[2025-06-18] MEDS: SODIUM CHLORIDE 0.9% IV 1,000 ML 999 ML IV CONT (08:57)
[2025-06-18 08:58] LABS: Add Urine Microscopic? YES; Appearance Urine Clear (Clear); Glucose Urine UA Negative (Negative); Leukocyte Esterase Ur Trace LEU/UL (Negative); Nitrate Urine Negative (Negative); Non Pathogenic Casts 0-2; Specific Grav Ur 1.005 (1.001-1.035)
[2025-06-18 09:03] LABS: Alanine Aminotransferase 16 U/L (6-35); Albumin Level 4.6 g/dL (3.5-5.1); Alkaline Phosphatase 66 U/L (38-126); Anion Gap 8 mmol/L (4-12); Aspartate Amino Transferase 24 U/L (14-36); Bilirubin,Total 0.6 mg/dL (0.2-1.3); Blood Urea Nitrogen 12 mg/dL (7-17); Calcium 9.5 mg/dL (8.4-10.2); Carbon Dioxide 26 mmol/L (22-30); Chloride 105 mmol/L (98-107); Estimated CRCL calculation 84 ml/min; Estimated Glomerular Filt Rate > 60; Glucose 115 mg/dL (65-110); Magnesium 2.0 mg/dL (1.6-2.3); Potassium 4.4 mmol/L (3.4-5.0); Sodium 139 mmol/L (137-145); Total Protein 7.8 g/dL (6.3-8.2)
== END 2025-06-18 10:46 | disposition home or self-care (01) ==
PROVIDERS: Emergency Provider Emergency Medicine; PCP Emergency Medicine
DX: H81.10 Benign paroxysmal vertigo, unspecified ear (principal)
CPT/HCPCS: 36415; 70496; 70498; 80053; 81001; 83735; 85025; 93005; 96361; 96374; 96375; 99284; J0780; J3360; J7030; Q9967